=== PATIENT | male | born 1990 ===

== ENCOUNTER 2016-02-23 13:14 | Emergency (ER) | payer OTHER ==
[2016-02-23 13:41] VITALS: BP 130/68; PULSE 61; RESP 14; TEMP 98.1; O2SAT 99
[2016-02-23] MEDS ORDERED: IBUPROFEN 800 MG TAB PO ONE (14:38)
[2016-02-23] MEDS ORDERED: HYDROCODONE/APAP 5/325 TAB PO ONE (14:39)
--- NOTE | 2016-02-23 14:43 | UCPHY ---
H & P Time Seen by Provider: 02/23/16 14:18 Patient Type: New HPI/ROS: HPI Back pain, fall from ladder. 25-year-old male by private vehicle with his girlfriend. This patient reports that he was at work this last . He reports that he was about 8 feet up on a ladder when he slipped and the ladder went out from underneath him. He fell backwards and landed on his back on top of the ladder. He complains of some right-sided mid thoracic pain. He reports that it is worse with movement. He describes it as a stiffness and aching. He did not hit his head. He denies any loss of consciousness. No other complaints. ROS: Constitutional: No fever, no chills. No weakness. Eyes: No discharge. No changes in vision. Respiratory: No cough. No shortness of breath. Cardiac: No chest pain, no palpitations. Gastrointestinal: No abdominal pain, no vomiting, no diarrhea. Genitourinary: No hematuria. Musculoskeletal: As above. No neck pain. No myalgias or arthralgias. Skin: No rashes. Neurological: No headache. No focal weakness or altered sensation. Past medical history: No significant past medical history. Social history: Here with his girlfriend. Physical Exam: General Appearance: Alert, no distress. This patient is responding to questions appropriately and in full sentences. This patient appears well- hydrated and well-nourished. Head: Normocephalic atraumatic. Face: Facial bones are stable on palpation. Eyes: Pupils equal and round and reactive to light, no pallor or injection. No lid erythema or edema. ENT, Mouth: Mucous membranes moist. Dentition is intact. No malocclusion of the jaw. No tongue lacerations or abrasions. Pharynx is clear. The bilateral nasal canals are clear. No septal hematoma. Respiratory: There are no retractions, lungs are clear to auscultation with good air movement bilaterally. Chest wall is stable to AP and lateral palpation. Cardiovascular: Regular rate and rhythm. No murmur. Gastrointestinal: Abdomen is soft and nontender, no masses, bowel sounds normal. Neurological: Motor sensory function is intact. Cranial nerves are normal. Cerebellar function intact. Skin: Warm and dry, no rashes. No lacerations. He has a superficial longitudinal abrasion over the right mid thoracic paraspinal area. Musculoskeletal: Neck is supple and nontender. The trachea is midline. No midline cervical, thoracic, lumbar or sacral tenderness on palpation. No flank tenderness on palpation. He has paraspinal tenderness on palpation from T7 through T12. No bony deformity or step-off noted on palpation. No soft tissue edema, erythema, ecchymosis or erythema noted. Extremities are symmetrical, full range of motion. All joints in the bilateral upper and bilateral lower extremities range without pain or impingement. No tenderness on palpation of the long bones in the bilateral upper and bilateral lower extremities. Psychiatric: No agitation. No depression. Database: EKG: Imaging: Thoracic spine x-ray series: Right-sided rib series x-ray with PA chest: Procedures: Emergency department course: After my evaluation he was given 600 mg of ibuprofen. He was given 2 [place] tablets. He was sent for x-rays. He provided us a urine sample. 3:20 p.m., patient re-evaluated. He is resting comfortably at this time. I discussed the results of his x-rays with him. His urinalysis was reviewed. He feels comfortable going home and I feel he is safe for discharge. I will prescribe him a short course of Vicodin for pain as well as high-dose ibuprofen over the next 3 days. He endorses this plan. Follow-up and return to emergency department precautions have been discussed with him. All of his questions were answered. He was discharged in good condition with his girlfriend who is driving. Differential Diagnosis: The differential diagnosis on this patient includes but is not limited to chest wall contusion, rib fractures. Pneumothorax, aortic dissection, splenic injury , renal injury unlikely. This represents a partial list of diagnoses considered. These considerations are based on history, physical exam, past history, reassessment and diagnostic testing. Smoking Status: Current every day smoker Constitutional: Initial Vital Signs Temperature (C) 36.7 C 02/23/16 13:36 Heart Rate 61 02/23/16 13:36 Respiratory Rate 14 02/23/16 13:36 Blood Pressure 130/68 H 02/23/16 13:36 O2 Sat (%) 99 02/23/16 13:36 O2 Delivery Mode Room Air Allergies/Adverse Reactions: No Known Allergies Allergy (Unverified 07/06/14 13:35) Home Medications: Medication Instructions Recorded Hydrocodone/APAP 5/325 [[place] 1 - 2 tab PO Q4-6PRN PRN #10 tab 02/23/16 5/325 (*)] MDM/Departure - MDM Medications Given: Discontinued Medications Acetaminophen/Hydrocodone Bitart ([place] 5/325) 2 tab PO EDNOW ONE Stop: 02/23/16 14:40 Last Admin: 02/23/16 15:04 Dose: 2 tab Ibuprofen (Motrin) 800 mg PO EDNOW ONE Stop: 02/23/16 14:39 Last Admin: 02/23/16 15:04 Dose: 800 mg - Depart Disposition: Home, Routine, Self-Care Clinical Impression: Chest wall contusion Condition: Good Instructions: Rib Contusion (ED) Additional Instructions: Read and follow provided instructions. Follow-up with your primary care physician in 2-3 days for re-evaluation. Take medication as prescribed. Ibuprofen dosin mg every 6 hours with meals for the next 3 days only. [place]/Percocet dosin-2 every 4-6 hours for pain[address] Do not drive on this medication. Return to the emergency department for worsening pain, blood in urine, numbness or weakness in lower extremities, bowel or bladder incontinence or other serious concerns. Prescriptions: Hydrocodone/APAP 5/325 [[place] 5/325 (*)] 1 - 2 tab PO Q4-6PRN PRN #10 tab PRN Reason: Pain, Moderate Referrals: NONE *PRIMARY CARE P,. [Primary Care Provider] - As per Instructions - PQRS PQRS Measurement: Not applicable.
[2016-02-23] MEDS ORDERED: IBUPROFEN 200 MG TAB PO ONE (15:01)
[2016-02-23 15:09] LABS: COLOR YELLOW; LEUKOCYTE ESTERASE,URINE NEGATIVE (NEGATIVE); NITRITE,URINE NEGATIVE (NEGATIVE)
--- NOTE | 2016-02-23 15:34 | DX ---
Thoracic spine 3 views including swimmers view. Reason for examination: Pain following trauma. Findings: A fracture is not identified. The bony alignment is normal. The paravertebral soft tissues are negative. Impression: Thoracic spine negative for posttraumatic sequela.
--- NOTE | 2016-02-23 16:38 | DX ---
PA Chest and Right Ribs History: Pain post trauma. Findings: PA chest - No evidence of pneumothorax, pleural effusion or pulmonary contusion. The medias tinum is not widened. Osseous structures appear intact. Right ribs- No definite rib fracture is identified Impression: Negative for displaced rib fracture or pneumothorax.
== END 2016-02-23 16:44 | disposition home or self-care (01) ==
LOC: CED 13:14
DX: S20.221A Contusion of right back wall of thorax, initial encounter (principal); W11.XXXA Fall on and from ladder, initial encounter
CPT/HCPCS: 71101-PO; 72070-PO; 81003-PO; 99203-PO; G0463-PO